=== PATIENT | female | born 1990 | race African-American/Black ===

== ENCOUNTER 2025-03-13 08:35 | Inpatient (IN) | payer MEDICAID, OTHER ==
[~2025-03-13] VITALS: Ht 165.1 cm; Wt 82.5 kg
[2025-03-13 09:08] VITALS: PULSE 73; RESP 12; O2SAT 97
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
[2025-03-13] MEDS: SODIUM CHLORIDE 0.9% 1,000 ML IV ONE ×2 (09:15→11:30)
[2025-03-13 09:29] LABS: Hematocrit 37.4 % (36.0-46.0); Hemoglobin 12.4 g/dL (12.2-16.2); Mean Corpuscular Hemoglobin 27.4 pg (28.0-32.0); Mean Corpuscular Volume 82.6 fL (80.0-100.0); Nucleated Red Blood Cells % 0.1 %
[2025-03-13 09:37] LABS: Chloride 102 mmol/L (98-107); Sodium 139 mmol/L (136-145)
[2025-03-13 09:38] LABS: Anion Gap 9 (5-15); Carbon Dioxide 28 mmol/L (20-31)
[2025-03-13 09:39] LABS: Calcium 9.7 mg/dL (8.7-10.4); Potassium 5.2 mmol/L (3.5-5.1)
[2025-03-13 09:43] LABS: BUN/Creatinine Ratio 9.4 (10.0-20.0); Glucose 90 mg/dL (74-106)
[2025-03-13 09:47] LABS: Blood Urea Nitrogen 8 mg/dL (9-23)
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
[2025-03-13] MEDS ORDERED: MORPHINE SULFATE INJ 2 MG/ml SYRG IV PRN (11:00)
[2025-03-13] MEDS ORDERED: DOCUSATE SOD 100 MG CAP PO PRN (11:00)
[2025-03-13] MEDS ORDERED: NITROGLYCERIN 0.4 MG SL TAB SL PRN (11:00)
[2025-03-13] MEDS ORDERED: TEMAZEPAM 15 MG CAP PO PRN (11:00)
[2025-03-13] MEDS: HYDROcodone-ACET 5/325MG TAB PO ONE (11:23)
[2025-03-13] MEDS ORDERED: LORazepam 2MG/ML-1ML VIAL IV PRN ×2 (11:45→13:15)
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
[2025-03-13] MEDS: SODIUM CHLORIDE 0.9% 1,000 ML IV SCH (12:59)
[2025-03-13] MEDS: ONDANSETRON HCL 4 MG/2 ML VIAL IV PRN (13:02)
[2025-03-13] MEDS: levETIRAcetam 1000 mg/100ml 100 ML IV ONE (13:02)
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
[2025-03-13] MEDS: GADOTERATE MEG 10 MMOL/20ml INJ (0.5MMOL/ml) IV ONE (15:40)
[2025-03-13 16:15] LABS: Urine Protein, UAD TRACE (Negative)
[2025-03-13 16:32] LABS: Cannabinoid Screen, Urine Pos (NEGATIVE)
[2025-03-13 16:33] LABS: Amphetamine Screen, Urine Neg (NEGATIVE); Barbiturate Scree,Urine Neg (NEGATIVE); Benzodiazephine Screen, Urine Neg (NEGATIVE); Cocaine Screen, Urine Neg (NEGATIVE); Opiate Scree,Urine Neg (NEGATIVE); Phencyclidine Screen, Urine Neg (NEGATIVE)
--- NOTE | 2025-03-13 17:20 | DVH ---
EXAM: MRI BRAIN HEAD WO W CONTRAST INDICATION: Sz, brain cyst TECHNIQUE: Multiplanar, multisequence imaging of the brain with and without contrast. COMPARISON: CT HEAD WITHOUT CONTRAST on DOS: 03/13/25 FINDINGS: [PARENCHYMA/EXTRA-AXIAL SPACES]: No abnormal diffusion restriction. Mass effect along the mesial temp oral lobe and left lateral aspect of the brainstem secondary to prominent epidermoid cyst demonstrati ng high diffusion signal and isointensity on ADC when compared to adjacent brain parenchyma. Possible inconspicuous very marginal thin faint enhancement. No definitive significant internal nodular enhan cement to suggest malignant degeneration slight possible intrinsic T1 hyperintensity along the continuous weld pipe mill supervisor ior margin of the level of the cerebellar pontine angle without susceptibility artifact. Overall si ze measuresr 4.9 x 1.9 by 4.5 cm. Lesion likely demonstrates internal flow voids /flow artifact. [VENTRICLES]: No hydrocephalus. [FLOW VOIDS]: The flow voids are intact. [EXTRA-CRANIAL STRUCTURES]: The bony structures are intact. Visualized portions of the paranasal sinu ses and mastoid air cells are essentially clear. IMPRESSION: 1. 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 2. Subsequent significant mass effect along the left aspect of the brainstem and mesial aspect of the left temporal lobe. 3. No definitive evidence of malignant degeneration. 4. Recommend surgical consultation.
[2025-03-13 18:33] VITALS: PULSE 78; RESP 18; O2SAT 97
[2025-03-13 21:00] VITALS: BP 101/65; PULSE 78; RESP 16; TEMP 98.1; O2SAT 97
[2025-03-13] MEDS: levETIRAcetam 500 mg/100ml 100 ML IV SCH (21:46)
[2025-03-14] VITALS (7 sets, daily range): BP systolic 109–133; BP diastolic 61–77; PULSE 51–82; RESP 14–17; TEMP 97.5–98.1; O2SAT 97–100
[2025-03-14 07:02] LABS: Hematocrit 34.8 % (36.0-46.0); Hemoglobin 11.5 g/dL (12.2-16.2); Mean Corpuscular Hemoglobin 27.2 pg (28.0-32.0); Mean Corpuscular Volume 82.3 fL (80.0-100.0); Nucleated Red Blood Cells % 0.0 %
[2025-03-14 07:20] LABS: Albumin 4.1 g/dL (3.2-4.8); Alkaline Phosphatase 46 U/L (46-116); Anion Gap 10 (5-15); BUN/Creatinine Ratio 7.9 (10.0-20.0); Bilirubin, Total 0.7 mg/dL (0.2-1.0); Calcium 8.8 mg/dL (8.7-10.4); Carbon Dioxide 25 mmol/L (20-31); Chloride 105 mmol/L (98-107); Glucose 88 mg/dL (74-106); Potassium 3.8 mmol/L (3.5-5.1); Sodium 140 mmol/L (136-145); Total Protein 6.7 g/dL (5.7-8.2)
[2025-03-14 07:21] LABS: Alanine Aminotransferase < 9 U/L (7-40); Blood Urea Nitrogen 6 mg/dL (9-23)
--- NOTE | 2025-03-14 14:24 | DVHPN2 ---
Reviewed: Care Plan, H&P, Labs, Medications, Previous Orders, Radiology Changes from previous H/P or p: No Changes Eyes: No Pain, No Vision change, No Conjunctivae inflammation, No Eyelid inflammation, No Other, No Redness ENT: No Ear pain, No Ear discharge, No Nose pain, No Nose discharge, No Nose congestion, No Mouth pain, No Mouth swelling, No Throat pain, No Throat swelling, No Other Cardiovascular: No Chest Pain, No Palpitations, No Orthopnea, No Paroxysmal Noc. Dyspnea, No Edema, No Lt Headedness, No Other Respiratory: No Cough, No Dry, No Shortness of breath, No SOB with excertion, No Wheezing, No Hemoptysis, No Pleuritic Pain, No Sputum, No Other Gastrointestinal: No Nausea, No Vomiting, No Abdominal Pain, No Diarrhea, No Constipation, No Melena, No Hematochezia, No Other Genitourinary: No Dysuria, No Frequency, No Incontinence, No Hematuria, No Retention, No Other Musculoskeletal: No other, No neck pain, No shoulder pain, No arm pain, No back pain, No hand pain, No leg pain, No foot pain Skin: No Rash, No Lesions, No Jaundice, No Bruising, No Other Objective Vitals Vital Signs Date Time Temp Pulse Resp B/P (MAP) Pulse Ox O2 Delivery O2 Flow Rate FiO2 03/14/25 13:00 97.9 78 16 114/67 (83) 97 97.9 03/14/25 08:00 Room Air* 0 21 Intake/Output Intake and Output 03/14/25 07:00 Intake Total 2900 ml Balance 2900 ml Intake Oral 200 ml IV Total 2700 ml # Voids 1 General Appearance: Alert, Cooperative HEENT: Atraumatic, PERRLA, EOMI, Mucous membr. moist/pink Neck: Supple Lungs: Clear to auscultation, Normal air movement Cardiovascular: Regular rate, Normal S1, Normal S2, No murmurs, Gallops, Rubs Abdomen: Normal bowel sounds, Soft, No tenderness Neuro: Cranial nerves 3-12 NL Psych/Mental Status: Mental status NL Medications Current Medications Medications Dose Ordered Sig/Humberto Route Start Time Stop Time Status Last Admin Dose Admin Sodium Chloride 1,000 ml @ 100 mls/hr Q10H IV 03/13/25 11:00 03/14/25 06:36 100 MLS/HR Temazepam 15 mg QHSP PRN PO 03/13/25 11:00 Ondansetron HCl 4 mg Q4HP PRN IV 03/13/25 11:00 03/13/25 13:02 4 MG Docusate Sodium 100 mg BIDPRN PRN PO 03/13/25 11:00 Morphine Sulfate 2 mg Q4HPRN PRN IV 03/13/25 11:00 Nitroglycerin 0.4 mg Q5MINP PRN SL 03/13/25 11:00 Levetiracetam 100 ml @ 400 mls/hr BID IV 03/13/25 22:00 03/14/25 08:55 400 MLS/HR Lorazepam 1 mg Q5MINP PRN IV 03/13/25 11:45 Lorazepam 1 mg ONCE PRN IV 03/13/25 13:15 Laboratory Results Laboratory Tests 03/14/25 06:10 Chemistry Test 03/14/25 06:10 Albumin 4.1 g/dL (3.2-4.8) Calcium Level 8.8 mg/dL (8.7-10.4) Total Protein 6.7 g/dL (5.7-8.2) LFT Test 03/14/25 06:10 Alanine Aminotransferase (ALT) < 9 U/L (7-40) Alkaline Phosphatase 46 U/L (46-116) Aspartate Amino Transferase (AST) 15 U/L (13-40) Total Bilirubin 0.7 mg/dL (0.2-1.0) Urinalysis Test 03/13/25 16:07 Urine Color Light-yellow (Yellow) Urine Clarity Turbid (Clear) H Urine pH 7.0 (5.0-9.0) Urine Specific [place] 1.018 (1.001-1.035) Urine Protein Trace (Negative) H Urine Ketones 1+ (Negative) H Urine Blood Negative /uL (Negative) Urine Nitrite Negative (Negative) Urine Bilirubin Negative (Negative) Urine Urobilinogen Normal mg/dL (Negative) Urine Leukocyte Esterase Negative /uL (Negative) Urine RBC <1 /hpf (0 - 4) Urine Microscopic WBC 1 /HPF (0-5) Urine Squamous Epithelial Cells Few /hpf (<5) Urine Bacteria Many /hpf (None Seen) H Urine Mucus Few (None Seen) Urine Glucose Normal mg/dL (Normal) Labs and/or images reviewed: Labs reviewed by me Assessment/Plan Assessment/Plan Acute metabolic encephalopathy likely from seizure activity Acute new onset seizure activity Acute hyperkalemia 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 Appreciate Dr. Hurley input. Discussed with patient regarding to epidermoid cyst. Patient needs to follow up with neurosurgeon as outpatient to discuss regarding to further management of the epidermoid cyst. Continuing Keppra for seizure. Waiting for EEG. Discharge planning. We will monitor potassium. This medical document was created using an electronic medical record system with [employer] direct computerized dictation system. Although this document has been carefully reviewed, there may still be some phonetic and typographical errors. These areas are purely typographical due to imperfections of the software programs, and do not reflect any compromise in the patient's medical care. Plan discussed with: Patient Date of Service: Mar 14, 2025 Billing Provider: RUBY ANNE MD Common Visit Codes: 33375-[id number] INP/OBS CARE(HIGH) RUBY ANNE MD Mar 14, 2025 14:24
[2025-03-15 00:52] VITALS: BP 108/64; PULSE 63; RESP 17; TEMP 98; O2SAT 98
[2025-03-15 05:00] VITALS: BP 110/64; PULSE 58; RESP 17; TEMP 97.6; O2SAT 98
[2025-03-15 06:29] LABS: Calcium 8.8 mg/dL (8.7-10.4); Chloride 106 mmol/L (98-107); Hematocrit 33.0 % (36.0-46.0); Hemoglobin 11.2 g/dL (12.2-16.2); Mean Corpuscular Hemoglobin 28.0 pg (28.0-32.0); Mean Corpuscular Volume 82.4 fL (80.0-100.0); Nucleated Red Blood Cells % 0.0 %; Potassium 3.8 mmol/L (3.5-5.1); Sodium 140 mmol/L (136-145)
[2025-03-15 06:30] LABS: Anion Gap 9 (5-15); Carbon Dioxide 25 mmol/L (20-31)
[2025-03-15 06:35] LABS: Glucose 87 mg/dL (74-106)
[2025-03-15 06:49] LABS: BUN/Creatinine Ratio 6.9 (10.0-20.0); Blood Urea Nitrogen < 5 mg/dL (9-23)
[2025-03-15 08:00] VITALS: PULSE 62; RESP 18
[2025-03-15 09:05] VITALS: BP 138/75; PULSE 66; RESP 14; TEMP 97.4; O2SAT 99
[2025-03-15] MEDS ORDERED: KEP500T PO (13:08)
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
[2025-03-15 13:16] VITALS: BP 128/75; PULSE 61; RESP 18; TEMP 97.9; O2SAT 98
[2025-03-15 17:02] VITALS: BP 121/76; PULSE 59; RESP 16; TEMP 98.1; O2SAT 98
--- NOTE | 2025-03-16 00:52 | DVHEEG2 ---
Neurology EEG Procedural Note Procedural Note EXAM DATE: 03/15/25 REFERRING DOCTOR: Dr. Jamison TECHNIQUE: Eighteen channels of EEG, 2 channels of EOG, and 1 channel of EKG were recorded using the [employer] 10/20 system. CLINICAL DATA: The patient was referred for an EEG evaluation for the evidence of seizure disorder. MEDICATIONS: See the chart BACKGROUND ACTIVITY: While the patient was awake, the background activity appe ared to be 9-10 Hz rhythmic waveforms, symmetrically distributed over both posterior quadrants and was reactive to eye opening. ACTIVATION: Hyperventilation: Not done Photic Stimulation: Not done Sleep: Not seen IMPRESSION: This is a normal EEG. No focal, lateralized, or epileptiform features are noted. If clinically indicated to rule out a seizure disorder, recommend repeat EEG with sleep deprivation. The EKG channel showed a regular heart rate of 60/min[place] [address] ROMULO JAMISON MD Mar 16, 2025 00:52
== END 2025-03-15 16:53 | disposition home or self-care (01) | DRG 53 ==
LOC: EDBD 08:35 → ER 08:35 → OVERFLOW 10:59 → CENTRAL 18:00
PROVIDERS: ADMIT Nurse Practitioner Family; ATTEND Nurse Practitioner Family
DX: G40.109 Localization-related (focal) (partial) symptomatic epilepsy and epileptic syndromes with simple partial seizures, not intractable, without status epilepticus (principal); G93.0 Cerebral cysts; E87.5 Hyperkalemia; F17.290 Nicotine dependence, other tobacco product, uncomplicated; F41.9 Anxiety disorder, unspecified; Z82.49 Family history of ischemic heart disease and other diseases of the circulatory system; Z98.891 History of uterine scar from previous surgery
CPT/HCPCS: 36415; 70450; 70553; 80048; 80053; 80307; 81001; 85025; 95819; 96361; 96374; 96375; 99291; G0378; J2405